=== PATIENT | female | born 1945 | race Caucasian/White ===

== ENCOUNTER → 2024-11-26 12:53 | Outpatient (BNVA) | payer MEDICARE, OTHER, SELFPAY | PROVIDERS: Family Provider Family Medicine; Visit Provider Dermatology | DX: D22.39 Melanocytic nevi of other parts of face (principal); L81.4 Other melanin hyperpigmentation; L98.8 Other specified disorders of the skin and subcutaneous tissue; L82.1 Other seborrheic keratosis; L82.0 Inflamed seborrheic keratosis; D48.5 Neoplasm of uncertain behavior of skin; L91.8 Other hypertrophic disorders of the skin; L29.89 Other pruritus; L53.8 Other specified erythematous conditions; R20.8 Other disturbances of skin sensation; L57.0 Actinic keratosis | CPT/HCPCS: 11102; 11200; 17000; 17110; 99204 ==